=== PATIENT | male | born 1950 | race Caucasian/White ===

== ENCOUNTER 2019-01-24 14:35 | Outpatient (REF) | payer MEDICARE, BC, SELFPAY ==
[2019-01-24 22:24] LABS: Abs Immature Grans 0.02 k/cumm (0.0-0.09); Absolute Basophil Count 0.05 k/cumm (0.0-0.2); Absolute Lymphocyte Count 1.06 k/cumm (1.2-3.4); Absolute Monocyte Count 0.81 k/cumm (0.11-0.7); Absolute Neutrophil Count 4.99 k/cumm (1.2-6.7); Basophils % 0.7; Eosinophils % 2.8; HCT 39.4 % (40.0-50.0); HGB 13.6 g/dL (13.5-17.5); Immature Grans % 0.3; Lymphocytes % 14.9; Mean Corp. HGB Concentration 34.5 g/dL (32.0-36.0); Mean Corpuscular Hemoglobin 31.6 pg (27.0-33.0); Mean Corpuscular Volume 91.6 fL (80-95); Mean Platelet Volume 10.4 fL (8.0-11.0); Monocytes % 11.4; Neutrophils % 69.9; Platelet Count 276 x1000/uL (130-400); RBC Distribution Width 12.9 % (11.8-14.1); White Blood Cell Count 7.13 k/cumm (4.4-10.8)
[2019-01-24 22:48] LABS: ALT 38 U/L (12-78); AST 18 U/L (15-37); Albumin 3.7 g/dL (3.4-5.0); Alkaline Phosphatase 106 U/L (46-116); Anion Gap 10.1 mmol/L (3-11); BUN 24 mg/dL (7-18); Bilirubin, Total 0.4 mg/dL (0.2-1.0); CO2 25.9 mmol/L (21.0-32.0); Calcium 8.6 mg/dL (8.5-10.1); Chloride 107 mmol/L (98-107); Glucose 90 mg/dL (70-100); Potassium 4.4 mmol/L (3.5-5.1); Sodium 143 mmol/L (136-145); TSH (W/Ref FT4) 1.86 uIU/mL (0.36-3.74); Total Protein 6.7 g/dL (6.4-8.2)
[2019-01-24 22:55] LABS: Hemoglobin A1C 5.6 % (4.5-6.2)
== END 2019-01-24 14:55 ==
LOC: NCHCN 14:35
PROVIDERS: PCP Family Medicine; Visit Provider Family Medicine
DX: M54.5 Low back pain (principal); R73.09 Other abnormal glucose; Z85.72 Personal history of non-Hodgkin lymphomas; R53.83 Other fatigue
CPT/HCPCS: 80053; 83036; 84443; 85025

== ENCOUNTER 2019-07-25 10:30 | Outpatient (REF) | payer MEDICARE, BC, SELFPAY ==
[2019-07-25 23:15] LABS: Hemoglobin A1C 5.8 % (3.8-5.6)
[2019-07-25 23:30] LABS: ALT 28 U/L (16-63); AST 14 U/L (15-37); Alkaline Phosphatase 99 U/L (46-116); Anion Gap 8.4 mmol/L (3-11); BUN 28 mg/dL (7-18); Bilirubin, Total 0.5 mg/dL (0.2-1.0); CO2 28.6 mmol/L (21.0-32.0); CREATININE 0.78 mg/dL (0.70-1.30); Calcium 8.9 mg/dL (8.5-10.1); Calculated LDL 176 mg/dL (<100); Chloride 105 mmol/L (98-107); Cholesterol 239 mg/dL (<200); Glucose 97 mg/dL (74-106); HDL Cholesterol 47 mg/dL (40-60); Potassium 4.7 mmol/L (3.5-5.1); Sodium 142 mmol/L (136-145); Total Protein 7.1 g/dL (6.4-8.2); Triglyceride 80 mg/dL (<150); Vitamin B12 449 pg/mL (193-986)
[2019-07-25 23:53] LABS: LDH 134 U/L (85-227)
[2019-07-27 06:45] LABS: Vitamin D 25 Total 53.6 ng/ml (30-100)
== END 2019-07-25 10:50 ==
LOC: NCHCN 10:30
PROVIDERS: PCP Family Medicine; Visit Provider Family Medicine
DX: R73.01 Impaired fasting glucose (principal); E78.5 Hyperlipidemia, unspecified; E55.9 Vitamin D deficiency, unspecified; C83.30 Diffuse large B-cell lymphoma, unspecified site; G60.9 Hereditary and idiopathic neuropathy, unspecified
CPT/HCPCS: 80053; 80061; 82306; 82607; 83036; 83615

== ENCOUNTER 2019-11-08 10:18 | Outpatient (REF) | payer MEDICARE, BC, SELFPAY ==
[2019-11-08 20:46] LABS: ALT 44 U/L (16-63); AST 20 U/L (15-37); Alkaline Phosphatase 97 U/L (46-116); Bilirubin, Total 0.5 mg/dL (0.2-1.0); Calculated LDL 106 mg/dL (<100); Cholesterol 164 mg/dL (<200); HDL Cholesterol 49 mg/dL (40-60); Total Protein 7.2 g/dL (6.4-8.2); Triglyceride 49 mg/dL (<150)
[2019-11-08 21:10] LABS: Bilirubin, Direct 0.14 mg/dL (0.00-0.20)
== END 2019-11-08 10:38 ==
LOC: NCHCN 10:18
PROVIDERS: PCP Family Medicine; Visit Provider Family Medicine
DX: E78.5 Hyperlipidemia, unspecified (principal)
CPT/HCPCS: 80061; 80076

== ENCOUNTER 2020-11-05 21:13 | Outpatient (REF) | payer MEDICARE, BC, SELFPAY ==
[2020-11-05 15:23] LABS: Hemoglobin A1C 5.6 % (<5.7)
[2020-11-05 15:27] LABS: ALT 40 U/L (16-63); AST 18 U/L (15-37); Alkaline Phosphatase 89 U/L (46-116); Anion Gap 8.2 mmol/L (3-11); BUN 34 mg/dL (7-18); Bilirubin, Total 0.5 mg/dL (0.2-1.0); CO2 28.8 mmol/L (21.0-32.0); Calcium 8.8 mg/dL (8.5-10.1); Calculated LDL 86 mg/dL (<100); Chloride 104 mmol/L (98-107); Cholesterol 146 mg/dL (<200); Glucose 97 mg/dL (74-106); HDL Cholesterol 49 mg/dL (40-60); Potassium 4.7 mmol/L (3.5-5.1); Sodium 141 mmol/L (136-145); Total Protein 7.2 g/dL (6.4-8.2); Triglyceride 59 mg/dL (<150)
== END 2020-11-05 21:14 | disposition home or self-care (01) ==
LOC: NCHCN 21:13
PROVIDERS: PCP Family Medicine; Visit Provider Family Medicine
DX: E78.5 Hyperlipidemia, unspecified (principal); R73.03 Prediabetes
CPT/HCPCS: 80053; 80061; 83036

== ENCOUNTER 2021-11-20 18:26 | Outpatient (REF) | payer MEDICARE, BC, SELFPAY ==
[2021-11-20 14:45] LABS: ALT 34 U/L (16-63); AST 17 U/L (15-37); Albumin 4.1 g/dL (3.4-5.0); Alkaline Phosphatase 81 U/L (46-116); Anion Gap 8.5 mmol/L (3-11); BUN 33 mg/dL (7-18); Bilirubin, Total 0.6 mg/dL (0.2-1.0); CO2 28.5 mmol/L (21.0-32.0); CREATININE 1.2 mg/dL (0.70-1.30); Calcium 8.8 mg/dL (8.5-10.1); Calculated LDL 89 mg/dL (<100); Chloride 105 mmol/L (98-107); Cholesterol 152 mg/dL (<200); Estimated GFR 59.86 (mL/min/1.73m2); Glucose 107 mg/dL (74-106); HDL Cholesterol 52 mg/dL (40-60); Sodium 142 mmol/L (136-145); Triglyceride 55 mg/dL (<150)
[2021-11-20 15:01] LABS: Hemoglobin A1C 5.7 % (<5.7)
[2021-11-20 15:03] LABS: Vitamin D 25 Total 45.9 ng/mL (30-100)
== END 2021-11-20 18:27 | disposition home or self-care (01) ==
LOC: NCHCN 18:26
PROVIDERS: PCP Family Medicine; Visit Provider Family Medicine
DX: E78.5 Hyperlipidemia, unspecified (principal); R73.03 Prediabetes
CPT/HCPCS: 80053; 80061; 82306; 83036

== ENCOUNTER 2022-06-02 12:56 | Outpatient (REF) | payer MEDICARE, BC, SELFPAY ==
[2022-06-02 21:25] LABS: Anion Gap 7.1 mmol/L (3-11); BUN 43 mg/dL (7-18); CO2 28.9 mmol/L (21.0-32.0); Calcium 9.1 mg/dL (8.5-10.1); Chloride 104 mmol/L (98-107); Estimated GFR 80.47 (mL/min/1.73m2); Glucose 104 mg/dL (74-106); Potassium 5.2 mmol/L (3.5-5.1); Sodium 140 mmol/L (136-145); TSH (W/Ref FT4) 1.51 uIU/mL (0.36-3.74)
== END 2022-06-02 12:57 | disposition home or self-care (01) ==
LOC: NCHCN 12:56
PROVIDERS: PCP Family Medicine; Visit Provider Family Medicine
DX: I50.9 Heart failure, unspecified (principal)
CPT/HCPCS: 80048; 84443

== ENCOUNTER 2023-01-18 11:46 | Outpatient (REF) | payer MEDICARE, BC, SELFPAY ==
[2023-01-18 15:55] LABS: ALT 28 U/L (16-63); AST 19 U/L (15-37); Albumin 3.7 g/dL (3.4-5.0); Alkaline Phosphatase 87 U/L (46-116); Anion Gap 6.1 mmol/L (3-11); BUN 34 mg/dL (7-18); Bilirubin, Total 0.4 mg/dL (0.2-1.0); CO2 27.9 mmol/L (21.0-32.0); CREATININE 0.8 mg/dL (0.70-1.30); Calculated LDL 100 mg/dL (<100); Chloride 106 mmol/L (98-107); Cholesterol 160 mg/dL (<200); Estimated GFR 94.03 (mL/min/1.73m2); Glucose 99 mg/dL (74-106); HDL Cholesterol 49 mg/dL (40-60); Sodium 140 mmol/L (136-145); Total Protein 7.2 g/dL (6.4-8.2); Triglyceride 59 mg/dL (<150)
[2023-01-18 16:11] LABS: Hemoglobin A1C 5.6 % (<5.7)
[2023-01-18 17:11] LABS: Vitamin D 25 Total 51.3 ng/mL (30-100)
== END 2023-01-18 11:47 | disposition home or self-care (01) ==
LOC: NCHCN 11:46
PROVIDERS: PCP Family Medicine; Visit Provider Family Medicine
DX: R53.83 Other fatigue (principal); R73.03 Prediabetes; E55.9 Vitamin D deficiency, unspecified; I48.0 Paroxysmal atrial fibrillation; E78.5 Hyperlipidemia, unspecified
CPT/HCPCS: 80053; 80061; 82306; 83036

== ENCOUNTER 2024-01-20 08:29 | Outpatient (REF) | payer MEDICARE, BC, SELFPAY ==
[2024-01-20 14:35] LABS: Abs Immature Grans 0.02 10^3/uL (0.0-0.06); Absolute Basophil Count 0.04 10^3/uL (0.0-0.2); Absolute Eosinophil Count 0.18 10^3/uL (0.0-0.7); Absolute Lymphocyte Count 1.43 10^3/uL (1.2-3.4); Absolute Monocyte Count 0.72 10^3/uL (0.1-0.8); Absolute Neutrophil Count 3.06 10^3/uL (1.2-6.7); Basophils % 0.7 %; Eosinophils % 3.3 %; HCT 42.7 % (40.0-50.0); HGB 14.3 g/dL (13.5-17.5); Immature Grans % 0.4 %; Lymphocytes % 26.2 %; MCH 31.7 pg (27.0-33.0); MCHC 33.5 % (32.0-36.0); MCV 95 fL (80-95); Monocytes % 13.2 %; Neutrophils % 56.2 %; Platelet Count 207 10^3/uL (130-400); RBC 4.51 10^6/uL (4.36-5.78); RDW 12.2 % (11.8-14.1); RDW-SD 42.5 fL; WBC 5.45 10^3/uL (4.4-10.8)
[2024-01-20 14:57] LABS: ALT 28 U/L (16-63); AST 17 U/L (15-37); Albumin 3.7 g/dL (3.4-5.0); Alkaline Phosphatase 91 U/L (46-116); BUN 30 mg/dL (7-18); Calcium 8.8 mg/dL (8.5-10.1); Calculated LDL 85 mg/dL (<100); Chloride 109 mmol/L (98-107); Cholesterol 146 mg/dL (<200); Estimated GFR 79.47 (mL/min/1.73m2); Glucose 115 mg/dL (74-106); HDL Cholesterol 50 mg/dL (40-60); Potassium 4.6 mmol/L (3.5-5.1); Sodium 144 mmol/L (136-145); TSH (W/Ref FT4) 1.76 uIU/mL (0.36-3.74); Total Protein 7.1 g/dL (6.4-8.2); Triglyceride 55 mg/dL (<150)
[2024-01-20 15:10] LABS: Hemoglobin A1C 5.7 % (<5.7)
== END 2024-01-20 08:30 | disposition home or self-care (01) ==
LOC: NCHCN 08:29
PROVIDERS: PCP Family Medicine; Visit Provider Family Medicine
DX: R73.03 Prediabetes (principal); E78.5 Hyperlipidemia, unspecified; R53.83 Other fatigue; I48.0 Paroxysmal atrial fibrillation; Z85.72 Personal history of non-Hodgkin lymphomas
CPT/HCPCS: 80053; 80061; 83036; 84443; 85025

== ENCOUNTER 2025-01-22 15:18 | Outpatient (REF) | payer MEDICARE, BC, SELFPAY ==
[2025-01-22 15:47] LABS: Abs Immature Grans 0.03 10^3/uL (0.0-0.06); HCT 42.9 % (40.0-50.0); HGB 14.4 g/dL (13.5-17.5); Immature Grans % 0.4 %; MCH 31.6 pg (27.0-33.0); MCHC 33.6 % (32.0-36.0); MCV 94 fL (80-95); MPV 10.4 fL (8.0-11.0); Platelet Count 210 10^3/uL (130-400); RBC 4.55 10^6/uL (4.36-5.78); RDW 11.9 % (11.8-14.1); RDW-SD 41.7 fL; WBC 7.30 10^3/uL (4.4-10.8)
[2025-01-22 17:08] LABS: ALT 43 U/L (16-63); AST 29 U/L (15-37); Albumin 3.8 g/dL (3.4-5.0); Alkaline Phosphatase 108 U/L (46-116); Anion Gap 6.6 mmol/L (3-11); BUN 29 mg/dL (7-18); Bilirubin, Total 0.5 mg/dL (0.2-1.0); CO2 30.4 mmol/L (21.0-32.0); Calcium 9.1 mg/dL (8.5-10.1); Calculated LDL 80 mg/dL (<100); Chloride 104 mmol/L (98-107); Cholesterol 147 mg/dL (<200); Estimated GFR 92.87 (mL/min/1.73m2); Glucose 105 mg/dL (74-106); HDL Cholesterol 51 mg/dL (>or=40); Potassium 4.3 mmol/L (3.5-5.1); Sodium 141 mmol/L (136-145); TSH (W/Ref FT4) 2.01 uIU/mL (0.36-3.74); Total Protein 7.4 g/dL (6.4-8.2); Triglyceride 83 mg/dL (<150); Vitamin D 25 Total 65 ng/mL (30-100)
== END 2025-01-22 15:19 | disposition home or self-care (01) ==
LOC: NCHCN 15:18
PROVIDERS: PCP Family Medicine; Visit Provider Family Medicine
DX: E78.5 Hyperlipidemia, unspecified (principal); E55.9 Vitamin D deficiency, unspecified
CPT/HCPCS: 80053; 80061; 82306; 84443; 85025